=== PATIENT | female | born 1940 | race Caucasian/White ===

== ENCOUNTER → 2018-06-11 | Outpatient (CLI) | payer OTHER ==
[~2018-06-11] VITALS: Ht 149.9 cm; Wt 45.5 kg
[~2018-06-11] MED LIST: B12INJ PO; CRESTOR20 MG PO; CYMBALTA30 MG PO; LISINOPRIL10 MG PO; MULTIVITAMINS1 EAC7 PO; NEURONTIN600 MG PO; WELLBUTRIN SR150 MG PO; ZANTAC 150MG T150 MG PO
--- NOTE | ~2018-06-11 | HPC ---
[address] [address] PAIN MANAGEMENT CONSULTATION Name: QUINTONLYNETTE E Room #: REG [facility] [id number] Admission: 06/11/18 Attend Phys: Yunior Quinteros DO Discharge: Date of : 42 Report #: [id number] THIS REPORT FOR: //name// CC: Dominguez Thrasher MD DATE OF SERVICE: 06/11/2018 CHIEF COMPLAINT: Low back pain, bilateral lower extremity pain with paresthesias, right greater than left. HISTORY OF PRESENT ILLNESS: As you know, the patient is a 77-year-old female with a longstanding history of low back pain and lower extremity pain with paresthesias. The patient, as you are aware, has significant thoracolumbar scoliotic curvature with dextroscoliosis rotation. She sought evaluation with Neurosurgery as she was not noticing improvement in symptoms with traditional epidural injections and treatment options from another pain clinic. Apparently, she went to an initial neurosurgeon who advised her no surgical options. She sought second opinion through Dr. Felix Thrasher's office who indicated no traditional surgical options were recommended, but consideration of a spinal cord stimulator might be beneficial. The patient was then subsequently referred to our clinic to discuss the possibility of undergoing a spinal cord stimulator trial implantation. She has been referred to our service to discuss this option. The patient indicates today pain is continuous, describes the pain as cramping, pulling, sharp, stabbing when describing pain. She places current pain score 9/10, daily average at 10/10, worst pain has been as 10/10. The patient states that sitting, standing, walking, moving, doing any activity tends to exacerbate symptoms, lying down is the only thing that improves her symptoms. She has been referred to our clinic to discuss the possibility of spinal cord stimulator trial implantation. She does come today with x-ray imaging, which shows severe S-shaped scoliotic curvature at the exact point where the spinal cord stimulator leads would have to be placed, which is at the T9-T10 level. She has been provided further imaging to be commented further. She has been referred to our clinic to discuss options for treatment. ALLERGIES: DARVON, KEFLEX, BACTRIM, SULFA. CURRENT MEDICATIONS: Cymbalta 60 mg once a day, ranitidine 150 mg twice a day, Wellbutrin 150 mg once a day, vitamin B12 100 mcg per day, Crestor 20 mg per day, gabapentin 600 mg 3 times a day, lisinopril 10 mg per day, multivitamin 1 tab per day, Colace 100 mg per day. PAST MEDICAL HISTORY: [address] [address] PAIN MANAGEMENT CONSULTATION Name: LYNETTE ALCANTARA Room #: REG CLMagen San#: [id number] Admission: 06/11/18 Attend Phys: Yunior Quinteros DO Discharge: Date of : 42 Report #: [id number] 1. Osteoarthritis. 2. Anemia. 3. Hyperlipidemia. 4. Hypertension. 5. History of heart murmur. 6. Varicose veins. 7. Severe kyphoscoliosis. 8. Interstitial cystitis. 9. Actinic keratosis. 10. Diverticular disease. 11. Chronic kidney disease stage 3. 12. Anxiety and depression. PAST SURGICAL HISTORY: Cryotherapy, EGD, orthopedic hand surgery, colonoscopies, appendectomy. SOCIAL HISTORY: The patient denies tobacco, alcohol, IV or illicit drug use. She is retired, retired years ago. She is not receiving workmen's compensation or is she trying to obtain disability benefits. She is not in litigation in regards to her pain. She is accompanied by her who is present in room today. REVIEW OF SYSTEMS: Positive for wearing corrective eyewear, depression, anxiety, chronic kidney disease, diverticular disease, chronic bladder issues, kyphoscoliosis with chronic pain, hyperlipidemia, hypertension, osteoarthritis of major weightbearing joints. All other review of systems is negative per 12-point review of systems other than those listed in history of present illness. Pain impact score 60/70. Near complete interference of daily activities secondary to pain. IMAGING: MRI lumbar spine obtained 05/21/2018 shows severe lumbar levoscoliosis with rotatory component and multilevel abnormal lateral subluxation specifically of L3 relative to L4, multilevel variable degenerative disk disease, lateral recess stenosis noted at the L4-L5 level on the left. Severe narrowing of the right L3-L4, neural foramen poorly distinguished due to abnormal left lateral subluxation. MRI of thoracic spine shows severe thoracic dextroscoliosis at the T9-T10 level. PQRS: The patient has known osteoarthritis of the thoracic and lumbar area as well as cervical area. She has arthritic changes within the hands, bilateral hips and knees. She does not carry the diagnosis of rheumatoid arthritis. She is placing pain intensity today 9/10. She is a fall risk, but has not had a fall in the last 3 months. She is not on blood thinners, but she is treated for [facility] [address] [place] [address] PAIN MANAGEMENT CONSULTATION Name: LYNETTE ALCANTARA Room #: REG [facility]#: [id number] Admission: 06/11/18 Attend Phys: Yunior Quinteros DO Discharge: Date of : 42 Report #: [id number] hypertension. She is not on opioid medications. She is a low risk for opioid abuse. Functional pain impact 60/70, near complete interference of daily activity. PHYSICAL EXAMINATION: VITAL SIGNS: Blood pressure 120/44, pulse 77, respiratory rate 14 and unlabored. The patient is 100% on room air. Height 4 feet 11 inches tall, weight 100 pounds, BMI calculated 20.3. GENERAL: Well-developed, well-nourished, well-hydrated severely kyphotic and scoliotic 77-year-old female, appearing stated age. She is in no acute distress, awake, alert and oriented x 3. Pain is rated at 9/10. HEENT: Normocephalic, atraumatic. Pupils equal, round, reactive to light. Extraocular muscles are intact. Sclerae nonicteric without injection. NEUROLOGIC: Cranial nerves 2 through 12 grossly intact. Speech is fluent. The patient deemed a fair historian. LUNGS: Clear, no wheeze, rhonchi or rales. CARDIOVASCULAR: Regular. No appreciable gallop or rub. ABDOMEN: Soft, nontender, nondistended, normoactive bowel sounds. EXTREMITIES: Show no clubbing, no cyanosis, no edema. MUSCULOSKELETAL: Lower extremity strength is symmetrical 5/5. Only noted weakness is with hip flexion on the right, which appears to be mildly reduced secondary to pain. Deep tendon reflexes 2+/4 at patella and Achilles. Ankle clonus is negative. Babinski is negative. Seated straight leg raising is negative. Supine straight leg raising is equivocal. Significant curvature of the thoracolumbar area noted in gross examination. Palpatory tenderness throughout the paraspinal musculature of lower lumbar spine, no spinous process tenderness. Gait is antalgic. Stance is mildly forward flexed, those scoliosis and kyphosis changes are noted. ASSESSMENT: 1. Chronic low back pain. 2. Idiopathic scoliosis. 3. Idiopathic kyphosis. 4. Chronic intractable pain. PLAN: 1. The patient has been referred to our service by her neurosurgeon to discuss the possibility of having a spinal cord stimulator trial implantation. The patient's symptoms appear to be radicular in origin and given the findings on recent imaging, I believe this is due to the neural foraminal stenosis noted in conjunction with the scoliotic curvatures both in the lumbar and contributed to by the thoracic area. The patient and I discussed at length the spinal cord stimulator option for treatment. I do feel she might be a candidate for this, but I have advised the patient given her significant scoliotic curvature and the fact that it is at the T9-T10 level where the leads have to be placed there is a strong potential that trial may not be possible given the significant rotational [address] [address] PAIN MANAGEMENT CONSULTATION Name: LYNETTE ALCANTARA Room #: REG [facility]#: [id number] Admission: 06/11/18 Attend Phys: Yunior Quinteros DO Discharge: Date of : 42 Report #: [id number] component at this level as well. The cord is quite torturous in the area and the dorsal columns do not align in typical fashion. There is also a high possibility that given this curvature that the leads may displace over time as I do not feel this curvature is significantly stable. There has been increasing curvature per the patient's report. This places the patient at a higher risk of early failure of the device once it is implanted. Certainly, we could look forward to moving forward with a temporary implant, but I would caution the patient that a possibility of long-term benefit from this device would not be guaranteed. The excessive curvature of the patient has at the T9-T10 level may also make it extremely difficult for the leads to be advanced in a percutaneous fashion. We will be sending the patient for further evaluation from a psychiatric standpoint for the spinal cord stimulator device, though I have advised the patient to contact her neurosurgeon before moving forward as the concerns that we have in regards to her anatomical situation and our concerns of the potential increasing curvature that may lead to failure of the device needs to be discussed before she moves forward. I do feel the spinal cord stimulator will provide some benefit, though I am not confident that she will gain long-term efficacy with this device given the changes that she has in the thoracic and lumbar area at this visit. She will discuss this further with her neurosurgeon. 2. The patient will be sent for psychiatric evaluation. I have given the patient multiple names of physicians in the area that do the psychiatric evaluation for spinal cord stimulator trials. Once the patient has completed this trial, we will review these reports. If she appears to be an appropriate candidate from a psychiatric standpoint, we would continue the process of approvals. The patient will make an appointment with his psychiatrist as quickly as possible so that this evaluation can be completed. 3. The patient will contact Neurosurgery in regards to the spinal cord stimulator and our concerns were voiced today. Certainly, giving this a trial would make sense in the patient's case as I do not feel that she is a candidate for traditional surgery. I have indicated to the patient as discussed above our concerns about her scoliotic curvature and the potential of long-term benefit with the device. The patient will need to discuss this further with the referring physician as they will be implanting the permanent device if successful in trial form. 4. We wish to thank Dr. Thrasher for the opportunity to see this patient in consultation. We will keep you apprised of her response to treatment and whether she wishes to move forward with the trial implantation of the spinal cord stimulator and its efficacy. Again, we wish to thank you for the opportunity to see the patient in consultation. <ELECTRONICALLY SIGNED> By: Yunior Quinteros DO 06/17/18 1301 [id number] [id number] Yunior Quinteros DO /nt
[2018-06-11 11:00] VITALS: BP 120/44
== END ==
LOC: PAIN 09:27
DX: M41.86 Other forms of scoliosis, lumbar region (principal); G89.4 Chronic pain syndrome; M54.5 Low back pain; I12.9 Hypertensive chronic kidney disease with stage 1 through stage 4 chronic kidney disease, or unspecified chronic kidney disease; N18.3 Chronic kidney disease, stage 3 (moderate); M19.90 Unspecified osteoarthritis, unspecified site; E78.5 Hyperlipidemia, unspecified; Z79.899 Other long term (current) drug therapy

== ENCOUNTER → 2018-07-16 | Outpatient (CLI) | payer OTHER ==
[~2018-07-16] VITALS: Ht 149.9 cm; Wt 46.7 kg
--- NOTE | ~2018-07-16 | P ---
[facility] [place] [address] PROCEDURE REPORT Name: LYNETTE ALCANTARA [id number] Admission: 07/16/18 Attend Phys: Yunior Quinteros DO Discharge: Date of : 42 Report #: [id number] THIS REPORT FOR: //name// CC: Dominguez Thrasher MD DATE OF SERVICE: 07/16/2018 PROCEDURE: Two-lead spinal cord stimulator trial implantation. DESCRIPTION OF PROCEDURE: After obtaining written consent, a 22-gauge IV Hep-Lock was placed in the patient's right upper extremity The patient was given IV prophylactic antibiotic infused 30 minutes prior to the procedure. The patient was taken to the fluoroscopy suite, placed in a prone position with 2 pillows under the abdomen to decrease lumbar lordosis. Cardiopulmonary monitoring was established and the patient's vital signs were monitored throughout the procedure. The patient's thoracolumbar area was then prepped and draped in aseptic fashion. AP fluoroscopic imaging was obtained to identify and jerardo the midline position of the T10 through L2 spinous processes. Skin was anesthetized with 1% lidocaine utilizing 10 mL total. This was done prior to the introduction of the two 14-gauge 4-1/2-inch Tuohy needles. Skin entry site was approximately at the level of the L1 vertebral body. Needle was advanced using a paramedian approach to the midline at approximately 45-degree angle. Loss of resistance to air was utilized to verify placement within the epidural space. The epidural space was entered at the T12-L1 interspace. Lateral fluoroscopic imaging was obtained to confirm the position of the tip of the Tuohy needle within the epidural space. Aspiration was noted to be negative for heme or cerebrospinal fluid. The patient did not complain of pain or paresthesias during needle placement. The spinal cord stimulating lead was then advanced through the Tuohy needle under direct visualization, slightly to the left of midline. The tip of the stimulating lead was then aligned with the inferior endplate of T8. At this point, temporary extension was connected to the end of the spinal cord stimulating lead. Stimulator testing was performed with the assistance of the [employer] device authorization representative. The patient reported good capture of pain over her typical pain area within acceptable voltage. The final position of the zero electrode was noted to be unmoved from its previous position. A second lead was placed following similar technique with placement of the lead just to the right of the initial lead located within midline. The stylets were then removed from each of the leads followed by the Tuohy needle. We checked the position of both leads prior to removing the stylets and prior to removing the Tuohy needles. This imaging was done both in AP and lateral positioning to confirm the leads did not displace. After verification of the positions, the stimulating leads were then anchored to the patient's back with benzoin, Steri-Strips and OpSite [address] [address] PROCEDURE REPORT Name: LYNETTE ALCANTARA Room #: REG [facility]#: [id number] Admission: 07/16/18 Attend Phys: Yunior Quinteros DO Discharge: Date of : 42 Report #: [id number] bandaging. Over a 35-minute timeframe was spent programming the spinal cord stimulator to obtain optimal capture of the pain's distribution in an acceptable voltage. The [facility] device authorization representative as well as myself advised the patient to keep the stimulator during the trial from getting wet. We exchanged information in regards to the on-call pain physician as well as the [employer] device authorization representative. She will contact if she has difficulty with the device itself. She was advised if she notes any concern of infection, whether this be fever, chills, night sweats, excessive drainage at the site, increasing neck pain, back pain, any type of weakness, she is to contact the on-call pain physician. If concerns of capture of the patient's typical pain, she is to contact the [employer] device authorization representative. The patient tolerated procedure well, carefully escorted to recovery room. Once meeting our discharge criteria, the patient was discharged home. <ELECTRONICALLY SIGNED> By: Yunior Quinteros DO 07/18/18 0753 1220 [id number] Yunior Quinteros DO /nt
--- NOTE | ~2018-07-16 | HPC ---
[facility] [place] [address] PAIN MANAGEMENT CONSULTATION Name: QUINTONLYNETTE E [facility] #[facility] [id number] Admission: 07/16/18 Attend Phys: Yunior Quinteros DO Discharge: Date of : 42 Report #: [id number] THIS REPORT FOR: //name// CC: Dominguez Thrasher MD DATE OF SERVICE: 07/16/2018 CHIEF COMPLAINT: Low back pain; bilateral lower extremity pain, right greater than left. HISTORY OF PRESENT ILLNESS: As you know, the patient is a 77-year-old female with longstanding history of low back pain, lower extremity pain with paresthesias. The patient sought evaluation through Neurosurgery with Dr. Felix Thrasher for surgical options. The patient was referred to our clinic to trial a spinal cord stimulator in hopes of improving overall pain. The patient has completed all psychiatric evaluations and prerequisites to undergo the procedure and returns today to undergo implantation of a temporary spinal cord stimulator in hopes of improving low back pain, bilateral lower extremity pain. The patient indicates pain at level of 9/10 today. States her pain is cramping, pulling, sharp and stabbing in sensation; exacerbated with standing, walking, sitting, movement, bending; improves with medications, heat and cold compresses. She returns today to undergo spinal cord stimulator trial implantation in hopes of improving lumbar radicular symptoms. ALLERGIES: DARVON, KEFLEX, BACTRIM, SULFA. CURRENT MEDICATIONS: Cymbalta, ranitidine, Wellbutrin, vitamin B12, Crestor, gabapentin, lisinopril, multivitamin, Colace. SOCIAL HISTORY: The patient denies tobacco, alcohol, IV or illicit drug use. She is retired, retired years ago. She is accompanied by her who is present in room today. IMAGING: No new imaging available. PQRS: The patient has osteoarthritis of the thoracolumbar spine as well as cervical spine. She has arthritic changes of the hands, bilateral hips and knees. She does not have the diagnosis of rheumatoid arthritis. She is placing pain intensity today 10. She is a fall risk, but has not had a fall in last 3 months. She is not on blood thinners. She is treated for hypertension. She is not on any opioid medications. She is at low risk for opioid abuse. Pain impact score 60/70, severe, near complete interference of daily activities secondary to pain. [address] [address] PAIN MANAGEMENT CONSULTATION Name: LYNETTE ALCANTARA Room #: REG CLI [place]#: [id number] Admission: 07/16/18 Attend Phys: Yunior Quinteros DO Discharge: Date of : 42 Report #: [id number] PHYSICAL EXAMINATION: VITAL SIGNS: Blood pressure 133/50, pulse is 76, respiratory rate 16 and unlabored. The patient is 100% on room air. Height 4 feet 11 inches tall, weight 103 pounds, BMI calculated 20.8. GENERAL: Well-developed, well-nourished, well-hydrated, severely kyphotic and scoliotic 77-year-old female, appearing stated age, placing current pain score at 9/10. HEENT: Normocephalic, atraumatic. Pupils equal, round, reactive to light. Speech is fluent. The patient deemed a good historian. EXTREMITIES: Show no clubbing, no cyanosis, no edema. MUSCULOSKELETAL: Lower extremity strength is 5/5, weakness in the hip flexors on the right when compared to left. Deep tendon reflexes 2+/4 patella and Achilles. Ankle clonus negative. Babinski is negative. Seated straight leg raising negative. Supine straight leg raising equivocal. ASSESSMENT: 1. Chronic low back pain. 2. Chronic lumbar radiculopathy. 3. Idiopathic scoliosis. 4. Idiopathic kyphosis. 5. Chronic intractable pain. PLAN: 1. The patient returns today having completed all prerequisites to undergo spinal cord stimulator trial implantation. The patient and I spent time today reviewing the risks and the benefits of this proposed treatment option. We discussed the risks as including, but are not necessarily limited to bleeding, bruising, infection, worsening pain, no relief of pain, also risk of temporary or permanent muscle weakness, temporary or permanent nerve damage, possible paralysis and . The patient states she understood and wished to proceed. 2. No medication changes made at today's visit. The patient will continue current medical therapy as previously prescribed. 3. We will see the patient back in followup visit next week for explantation of the spinal cord stimulator. The patient was advised during the trial if she notes any fever, chills, night sweats, changes in back pain, increasing neck pain, any type of weakness, excessive drainage at the site of the injections, she is to contact the on-call pain physician. If she is having concern of pain in her normal distribution, she is to contact the [employer] device benefits representative for adjustment of the device. We will see her back in followup visit in 1 week for explantation of spinal cord stimulator. <ELECTRONICALLY SIGNED> By: Yunior Quinteros DO 07/18/18 0753 1220 32 Yunior Quinteros, DO /nt
[2018-07-16 07:12] VITALS: BP 133/50
== END | disposition home or self-care (01) ==
LOC: PAIN 06:40
DX: M47.25 Other spondylosis with radiculopathy, thoracolumbar region (principal); M47.22 Other spondylosis with radiculopathy, cervical region; M41.20 Other idiopathic scoliosis, site unspecified; G89.29 Other chronic pain; I10 Essential (primary) hypertension; Z88.8 Allergy status to other drugs, medicaments and biological substances; Z88.2 Allergy status to sulfonamides; Z79.899 Other long term (current) drug therapy

== ENCOUNTER → 2018-07-23 | Outpatient (CLI) | payer OTHER ==
[~2018-07-23] VITALS: Ht 149.9 cm; Wt 46.5 kg
[~2018-07-23] MED LIST changes: +BUTRANS1 EAC1 TRANSDERM
--- NOTE | ~2018-07-23 | HPC ---
[facility] [place] [address] PAIN MANAGEMENT CONSULTATION Name: LYNETTE ALCANTARA [facility] [id number] Admission: 07/23/18 Attend Phys: Yunior Quinteros DO Discharge: Date of : 42 Report #: [id number] THIS REPORT FOR: //name// CC: Dominguez Quinteros DATE OF SERVICE: 07/23/2018 CHIEF COMPLAINT: Low back pain and bilateral lower extremity pain, right greater than left. HISTORY OF PRESENT ILLNESS: As you know, the patient is a 77-year-old female with long-standing history of low back pain and lower extremity pain with paresthesias. The patient sought evaluation with Neurosurgery, Dr. Felix Thrasher, for surgical options. The patient was referred to our clinic to trial a spinal cord stimulator. She returns today in followup visit, having completed her spinal cord stimulator trial. Unfortunately, the trial did not provide greater than 50% improvement in overall pain. She returns today with pain level of 3/10. She states pain is cramping, pulling, sharp, stabbing, exacerbated with sitting, standing, walking, movement, bending and improves with medications, heat, cold compresses and lying down. The patient did not report good efficacy with the spinal cord stimulator trial. She returns to discuss options. ALLERGIES: DARVON, KEFLEX, BACTRIM AND SULFA. CURRENT MEDICATIONS: Cymbalta, ranitidine, Wellbutrin, vitamin B12, Crestor, gabapentin, lisinopril, multivitamin and Colace. SOCIAL HISTORY: The patient denies tobacco, alcohol, IV or illicit drug use. She is retired, retired years ago; accompanied by her , present in room today. IMAGING: No new imaging available. 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 She has arthritic changes of the hands, bilateral hips and knees. She does not have a diagnosis of osteoarthritis. She is placing current pain score around 3/10. She is a fall risk, but has not had a fall in last 3 months. She is not on blood thinner. She is treated for hypertension. She is not on any current opioid medications. She is low risk for opioid abuse. Pain impact score remains at 60/70, near complete interference with daily activities secondary to pain. PHYSICAL EXAMINATION: VITAL SIGNS: Blood pressure 137/51, pulse 76 and respiratory rate 16 and [facility] [address] [place] [address] PAIN MANAGEMENT CONSULTATION Name: LYNETTE ALCANTARA Room #: REG CLI [facility].#: [id number] Admission: 07/23/18 Attend Phys: Yunior Quinteros DO Discharge: Date of : 42 Report #: [id number] unlabored. The patient is 100% on room air. Height is 4 feet 11 inches tall, weight 102.6 pounds and BMI calculated at 20.7. GENERAL: Well-developed, well-nourished, well-hydrated severely scoliotic and kyphotic 77-year-old female, appearing her stated age. She is placing the pain score today at 3/10. HEENT: Normocephalic, atraumatic. Pupils equal, round and reactive to light. EXTREMITIES: Show no clubbing, no cyanosis, no edema. MUSCULOSKELETAL: Lower extremity strength is 5/5. Muscle bulk and tone are symmetrical, though she does have some weakness with hip flexors on the right, when compared to the left. Deep tendon reflexes 2+/4 patella and Achilles. Ankle clonus negative. Babinski is negative. Seated straight leg raising negative. Supine straight leg raising equivocal. ASSESSMENT: 1. Chronic low back pain. 2. Lumbar radiculopathy. 3. Idiopathic scoliosis. 4. Idiopathic kyphosis. 5. Opioid intolerance. 6. Chronic intractable pain. PLAN: 1. The patient returns today in followup visit indicating no significant efficacy with the spinal cord stimulator trial. Unfortunately, this did not provide the patient with any benefit significant enough that she should move forward with the device. We have advised the patient of such today. We discussed with the patient that options are fairly limited for treatment at this point. We discussed the following potential treatment options with the patient today: We discussed physical therapy, stretching exercise and core strengthening as a way to try to improve pain and continue normal function. We discussed medication management as an option for treatment and ultimately surgical options, though Neurosurgery is resistant to discuss extensive surgeries that would be necessary to try to correct the severe rotoscoliosis and kyphosis noted in this patient's imagings. After a discussion of the remaining treatment options, the patient chose to move forward with medication management. 2. The patient voices issues with multiple opioids. She was trialed on tramadol, which cause confusion, disorientation and had to be discontinued immediately due to concerns of fall risk. She was trialled on hydrocodone, oxycodone and morphine, all of which caused severe constipation effects and respiratory issues. This leaves us with very few alternative treatment options. We discussed that the options that exist from an opioid standpoint are quite limited with the side effects she has already had with other medications. We discussed the possibility of utilizing buprenorphine, which is a partial agonist [address] [address] PAIN MANAGEMENT CONSULTATION Name: LYNETTE ALCANTARA Room #: REG CLI Mena#: [id number] Admission: 07/23/18 Attend Phys: Yunior Quinteros DO Discharge: Date of : 42 Report #: [id number] with the mu receptor, causing less GI issues or no respiratory issues, but providing analgesic benefit. We also discussed possibility of utilizing Nucynta as a treatment option. After reviewing the risks and benefits of those two medications, the patient requested possibly utilizing buprenorphine. 3. The patient was provided a Butrans patch 5 mcg patch 1 patch every week. This will provide the patient with buprenorphine benefit, reduce the potential GI issues by avoiding the alimentary canal. This will allow for 24-hour day coverage of pain, which is what the patient experiences daily and gives the patient's baseline level of medication with lower side effect profile. I did advise the patient that this medication could be difficult to obtain given its issues with coverage from third alliance party payer perspective, though, in this patient's case, I feel it is appropriate and necessary as I do not feel the patient is going to be able to find other options for treatment given the severity of her clinical findings. 4. We will see the patient back in followup visit in 1 month. At that time, we will discuss the efficacy of the Butrans patch to determine if we need to adjust the medication to address any residual pain. 5. We have advised the patient to return to see the referring physician, Dr. Felix Thrasher, for options from a surgical standpoint. As indicated above, there are limited opportunities to treatment in this patient's case and she may need to look towards more aggressive surgical options if she wishes to alleviate symptoms. We will see her back in 1 month after she has had a discussion with Neurosurgery. <ELECTRONICALLY SIGNED> By: Yunior Quinteros DO 07/29/18 [id number] Yunior Quinteros DO /nt
[2018-07-23 10:02] VITALS: BP 137/51
== END ==
LOC: PAIN 07-22 10:40
DX: M54.16 Radiculopathy, lumbar region (principal); G89.4 Chronic pain syndrome; F11.23 Opioid dependence with withdrawal; M41.26 Other idiopathic scoliosis, lumbar region

== ENCOUNTER → 2018-08-05 | Outpatient (CLI) | payer OTHER ==
[~2018-08-05] VITALS: Ht 149.9 cm; Wt 46.7 kg
[~2018-08-05] MED LIST changes: +VITAMIN D1000 UNI1 PO
--- NOTE | ~2018-08-05 | HPC ---
[address] [address] PAIN MANAGEMENT CONSULTATION Name: LYNETTE ALCANTARA Room #: REG CL Mena#: [id number] Admission: 08/05/18 Attend Phys: Yunior Quinteros DO Discharge: Date of : 42 Report #: [id number] THIS REPORT FOR: //name// CC: Dominguez [facility] DATE OF SERVICE: 08/05/2018 CHIEF COMPLAINT: Back pain, bilateral lower extremity pain, right greater than left. HISTORY OF PRESENT ILLNESS: As you know, the patient is a 77-year-old severely scoliotic and kyphotic female who has a longstanding history of low back pain, lower extremity pain with paresthesias, right greater than left. She was originally referred to our clinic to trial a spinal cord stimulator. Unfortunately, this provided no improvement in symptoms. She has severe scoliosis and [id number] kyphosis complaining to cause her ongoing pain issues. She returns today in followup visit after being initiated on Butrans patch in hopes of improving pain for baseline pain control. Unfortunately, the patient could not tolerate this medication as well. She has essentially failed oral medication management. She has failed a spinal cord stimulator therapy. We discussed the possibility of having the patient undergo an epidural injection under fluoroscopic guidance as she has received improvement in the past, though I have advised the patient that this would not be a longstanding treatment as her symptoms are more mechanical than strictly neuropathic. She returns requesting this lumbar epidural injection having failed medication changes. ALLERGIES: DARVON, KEFLEX, BACTRIM, SULFA. CURRENT MEDICATIONS: Cymbalta, ranitidine, Wellbutrin, vitamin B12, Crestor, gabapentin, lisinopril, multivitamin, Colace. SOCIAL HISTORY: The patient denies tobacco, alcohol, IV or illicit drug use. She is retired, retired years ago, accompanied by her present in room today. IMAGING: No new imaging available. PQRS: The patient has a thoracolumbar osteoarthritis, cervical arthritis. She has arthritic changes of her hand, bilateral hips and knees. She does not have a diagnosis of rheumatoid arthritis. She is placing pain today at around 9/10. She is not a fall risk, has not fallen in the last 3 months. She is not on blood thinners. She is not treated for hypertension. She is not on any chronic opioids. She is at low risk for opioid addiction. She is placing pain impact at 60/70, near complete interference of daily activities secondary to pain. [address] [address] PAIN MANAGEMENT CONSULTATION Name: LYNETTE ALCANTARA [facility] [id number] Admission: 08/05/18 Attend Phys: Yunior Quinteros DO Discharge: Date of : 42 Report #: [id number] PHYSICAL EXAMINATION: VITAL SIGNS: Blood pressure 117/51, pulse 75, respiratory rate 14 and unlabored. The patient is 100% on room air. Height 4 feet 11 inches tall, weight 103 pounds, BMI calculated 20.8. GENERAL: Well-developed, well-nourished, well-hydrated, scoliotic and kyphotic 77-year-old female, appears her stated age. She is in no acute distress, awake, alert and oriented x 3. Pain is rated at 9/10. HEENT: Normocephalic, atraumatic. Pupils equal, round, reactive to light. EXTREMITIES: Show no clubbing, no cyanosis, no edema. MUSCULOSKELETAL: The patient has noted a 5/5 lower extremity strength. Muscle bulk and tone are symmetrical, though there is some weakness in the hip flexors on the right when compared to left. Deep tendon reflexes are symmetrical. Ankle clonus negative. Babinski is negative. Seated straight leg raising negative. Supine straight leg raising is equivocal. She has a significant scoliotic and moderate kyphotic curvature noted of the thoracolumbar area. ASSESSMENT: 1. Chronic low back pain. 2. Chronic lumbar radiculopathy. 3. Idiopathic scoliosis. 4. Idiopathic kyphosis. 5. Opioid intolerance. 6. Chronic intractable pain. PLAN: 1. The patient returns today in followup visit indicating she was unable to tolerate the Butrans patch. This is unfortunate as it has the lowest potential of side effects from a gastrointestinal standpoint as well as from respiratory standpoint. She states she was nauseated and felt like vomiting throughout the entire first dosing of patches. She returns to discuss other options for treatment. We discussed the following with the patient today, though we have a severely limited treatment options given her extends of thoracolumbar scoliosis and subsequent sequelae. We discussed physical therapy, stretching exercises as a treatment option that in conjunction with myofascial release and acupuncture therapy could be quite beneficial. We discussed medication management changes, though she has failed most current opioid formulations. She apparently had had hydrocodone in the past, and this caused some nausea and dysphoric effects. She has had oxycodone again which cause nausea and dysphoric effects. Morphine she is refusing to trial. We tried her on a Butrans, but this caused nausea and dysphoric effects. I believe we have a fairly severely limited capabilities of treating her symptoms with these medications. We also discussed possibility of undergoing epidural injection as she has seen improvement in the past, though I have advised the patient this will not provide prolonged benefit. We also discussed [facility] [address] [place] [address] PAIN MANAGEMENT CONSULTATION Name: QUINTONLYNETTE Zoya Room #: REG THEA San#: [id number] Admission: 08/05/18 Attend Phys: Yunior Quinteros DO Discharge: Date of : 42 Report #: [id number] ultimately surgical options, which if the patient wishes to correct any of the issues that she currently has will be necessary. After discussing risks and benefits of all proposed treatment options, the patient chose to begin with an epidural injection. The patient was advised risks and benefits of a lumbar epidural injection. These risks include but are not necessarily limited to bleeding, bruising, infection, worsening pain, no relief of pain, also risk of temporary or permanent muscle weakness, temporary or permanent nerve damage, possible paralysis and . The patient states understood and wished to proceed. 2. No medication changes made at today's visit. We have advised the patient discontinue use of Butrans. She can destroy the Butrans patches as indicated on the design tech label or she can return those to her local pharmacy for destruction. 3. We will see the patient back in followup visit on an as needed basis. We have recommended that she return to see her neurosurgeon who referred the patient to our clinic, Dr. Felix Thrasher, for surgical options PROCEDURE NOTE DESCRIPTION OF PROCEDURE: Lumbar epidural steroid injection under fluoroscopic guidance. After obtaining written consent, the patient was taken back to fluoroscopy suite, placed in prone position with pillow under abdomen to decrease lumbar lordosis. Skin overlying lumbosacral area then prepped and draped in aseptic fashion. Lumbar intervertebral spaces were identified by AP fluoroscopy. Skin and subcutaneous tissue overlying target site of injection and anesthetized with 3 mL of 1% lidocaine. A 20-gauge 3-1/2 inch Tuohy needle advanced under fluoroscopic guidance towards the epidural space using a paramedian approach. Epidural space identified using loss of resistance to air technique. After negative aspiration for heme or cerebrospinal fluid, 1 mL of Omnipaque was injected. A lumbar epidurogram was confirmed using both AP and lateral fluoroscopy. After negative aspiration for heme or cerebrospinal fluid, 5 mL of a solution containing 2 mL 40 mg per mL, 80 mg total triamcinolone, 3 mL lidocaine 1% injected slowly. Needle retracted detention, flushed with 1 mL of 1% lidocaine and removed. Sterile bandage placed over injection site. No new motor deficits present in the lower extremity following the procedure. The patient tolerated procedure well, [place] [address] PAIN MANAGEMENT CONSULTATION Name: LYNETTE ALCANTARA Room #: REG CLI [facility].#: [id number] Admission: 08/05/18 Attend Phys: Yunior Quinteros DO Discharge: Date of : 42 Report #: [id number] stable condition. No apparent complication. After meeting discharge criteria, the patient discharged home. <ELECTRONICALLY SIGNED> By: Yunior Quinteros DO 08/12/18 1109 [id number] [id number] Yunior Quinteros DO /yang
[2018-08-05 09:38] VITALS: BP 117/51
== END | disposition home or self-care (01) ==
LOC: PAIN 08:40
DX: M54.16 Radiculopathy, lumbar region (principal); G89.29 Other chronic pain; M41.86 Other forms of scoliosis, lumbar region; M19.90 Unspecified osteoarthritis, unspecified site; Z88.5 Allergy status to narcotic agent; Z88.2 Allergy status to sulfonamides; Z88.8 Allergy status to other drugs, medicaments and biological substances; Z79.899 Other long term (current) drug therapy; Z98.890 Other specified postprocedural states

== ENCOUNTER → 2018-08-20 | Outpatient (CLI) | payer OTHER ==
[~2018-08-20] VITALS: Ht 149.9 cm; Wt 45.0 kg
--- NOTE | ~2018-08-20 | HPC ---
[facility] [place] [address] PAIN MANAGEMENT CONSULTATION Name: LYNETTE ALCANTARA Room #: REG CL [facility].#: [id number] Admission: 08/20/18 Attend Phys: Yunior Quinteros DO Discharge: Date of : 42 Report #: [id number] THIS REPORT FOR: //name// CC: Dominguez Thrasher M.D. DATE OF SERVICE: 08/20/2018 CHIEF COMPLAINT: Back pain, bilateral lower extremity pain, right greater than left. HISTORY OF PRESENT ILLNESS: As you know, the patient is a 77-year-old severely scoliotic and kyphotic female with longstanding history of low back pain, bilateral lower extremity pain and paresthesias, right greater than left. She was originally referred to our clinic to trial a spinal cord stimulator. Unfortunately, this provided no improvement in symptoms. She suffers from severe scoliosis, xycm-gg-xddlohsb kyphosis, which causes low back issues and mid back issues as well as bilateral lower extremity pain with paresthesias. She underwent an epidural injection at our last visit for which she reports improvement of about 100%, lasting for 2 weeks. Unfortunately, her symptoms have progressively returned. She is now placing pain score at 6/10. States the pain is cramping, pulling, sharp and stabbing in sensation, exacerbated with standing and walking; improves with heat compresses, lying down and transiently with epidural injections. She returns today to discuss treatment options for ongoing pain issues. ALLERGIES: DARVON, KEFLEX, BACTRIM, SULFA. CURRENT MEDICATIONS: Cymbalta, ranitidine, Wellbutrin, vitamin B12, Crestor, gabapentin, lisinopril, multivitamin, Colace. SOCIAL HISTORY: The patient denies tobacco, alcohol, IV or illicit drug use. She is retired, retired years ago. She is accompanied by her who is present in room today. IMAGING: No new imaging available. PQRS: The patient has thoracolumbar osteoarthritis; cervical arthritis; arthritic hands, bilateral hips and knees. No diagnosis of rheumatoid arthritis. She is placing pain today at 6/10. She is not a fall risk, has not had a fall in the last 3 months. She is not on blood thinners. She is not treated for hypertension. She is not on chronic opioids. She is a low risk for opioid addiction. Her pain impact tool is 60/70 indicating severe near complete interference of daily activities secondary to pain. [address] [address] PAIN MANAGEMENT CONSULTATION Name: LYNETTE ALCANTARA Room #: REG CLI Mena#: [id number] Admission: 08/20/18 Attend Phys: Yunior Quinteros DO Discharge: Date of : 42 Report #: [id number] PHYSICAL EXAMINATION: VITAL SIGNS: Blood pressure 116/54, pulse 78, respiratory rate 14 and unlabored. The patient is 100% on room air. Height 4 feet 11 inches tall, weight 99.2 pounds, BMI calculated at 20. GENERAL: Well-developed, well-nourished, well-hydrated severely scoliotic and kyphotic 77-year-old female appearing her stated age. She is placing current pain score approximately at 6/10. HEENT: Normocephalic, atraumatic. Pupils equal, round, reactive to light. EXTREMITIES: Show no clubbing, no cyanosis, no edema. MUSCULOSKELETAL: Lower extremity strength is symmetrical 5/5. Muscle bulk and tone are symmetrical with only weakness of the hip flexors on the right when compared to left. Deep tendon reflexes are symmetrical. Ankle clonus negative. Babinski is negative. Seated straight leg raising negative. Supine straight leg raising is equivocal significant scoliotic and moderate kyphotic curvature of the thoracolumbar area. ASSESSMENT: 1. Chronic low back pain. 2. Lumbar radiculopathy. 3. Idiopathic scoliosis. 4. Idiopathic kyphosis. 5. Opioid intolerance. 6. Chronic intractable pain. PLAN: 1. The patient has returned today in followup visit where we have discussed the efficacy of the epidural injection. She reports improvement of 100%, lasting for 2 weeks. Unfortunately, she has had a slow and progressive return of symptoms though she indicates the 6/10 pain is much improved pain level than our previous evaluation. She wishes to remain utilizing the epidural injections on an as needed basis. She understands that she will experience discomfort due to her significant scoliosis and kyphosis that may be present with or without the assistance of medications. She does indicate her radicular symptoms have improved, about remaining at 60% improvement at this time. She will utilize the epidural injections on an as needed basis. 2. The patient has been trialed on medication management. We have trialed the easy to tolerate medications, but she was unable to tolerate them. We tried rotating medications, but this also led to some dysphoric effects, the patient did not like. We will delay any other changes in medication therapy given the fact that she was unable to tolerate fairly benign medications from a GI standpoint and nausea standpoint. Certainly we can look towards medication management in the future if necessary. 3. I have recommended the patient return to the referring physician, Dr. Felix Thrasher, to discuss surgical options. We will be available to have the patient undergo epidural injections on an as needed basis, but I believe that further interventions may be necessary. We will defer to Dr. Thrasher if he wishes to [facility] [address] [place] [address] PAIN MANAGEMENT CONSULTATION Name: LYNETTE ALCANTARA Room #: REG CLMagen San#: [id number] Admission: 08/20/18 Attend Phys: Yunior Quinteros DO Discharge: Date of : 42 Report #: [id number] move forward with surgical options. 4. We will see the patient back in followup visit on an as needed basis. By: 1541 20 Yunior Quinteros DO /nt
[2018-08-20 09:32] VITALS: BP 116/54
== END | disposition home or self-care (01) ==
LOC: PAIN 08:59
DX: M54.9 Dorsalgia, unspecified (principal); Z88.2 Allergy status to sulfonamides; Z88.8 Allergy status to other drugs, medicaments and biological substances; Z79.899 Other long term (current) drug therapy

== ENCOUNTER → 2019-01-07 | Outpatient (CLI) | payer OTHER ==
[~2019-01-07] VITALS: Ht 149.9 cm; Wt 45.8 kg
[2019-01-07 10:15] VITALS: BP 130/60
--- NOTE | 2019-01-07 10:35 | NUR ---
Pain Clinic Assessment: 1. History of Osteoarthritis: BACK FINGERS History of Rheumatoid Arthritis: Not Applicable 2. Height: 4 ft. 11 in. 149.9 cm. Weight: 101.0 lb. oz. 45.813 kg. Patient's BMI: 20.4 3. Vital Signs: BP: 130/60 Pulse: 75 Resp: 14 Temp: 02 Sat: 100 ECG Mon: 4. Pain Intensity: 8 5. Fall Risk: Dizziness: N Needs help standing or walking: N Fallen in the last 3 months: N Fall risk comments: 6. Patient on Blood Thinner: None 7. History of Hypertension: N 8. Opioid Therapy greater than 6 weeks: N Opiate Contract Signed: 9. Risk Assessment Tool Provided: LOW RISK 09/18 10. Functional Assessment Tool: 11. Recreational Drug Use: Never Drug Type: Tobacco Use: Never Smoker Tobacco Type: Amount or Packs/day: How Many Years: Alcohol Use: No Frequency: Quant:
--- NOTE | 2019-01-14 12:39 | HPC ---
[facility] [place] [address] PAIN MANAGEMENT CONSULTATION Name: LYNETTE ALCANTARA Zoya [facility] #[facility] [id number] Admission: 01/07/19 ������������������ Attend Phys: Yunior Quinteros DO Discharge: ������������������ Date of : 42 Report #: [id number] THIS REPORT FOR: //name// CC: GRETCHEN Thrasher MD DATE OF SERVICE: 01/07/2019 CHIEF COMPLAINT: Back pain, bilateral lower extremity pain with paresthesias, right greater than left. HISTORY OF PRESENT ILLNESS: As you know, the patient is a very pleasant 78-year-old severely scoliotic and kyphotic female with longstanding history of low back pain, bilateral lower extremity pain with paresthesias, right greater than left. She was originally referred to our clinic to trial a spinal cord stimulator. Unfortunately, this did not provide improvement in symptoms and thus, the patient did not progress towards permanent implant. She was last seen in our clinic on 08/20/2018 where she underwent a lumbar epidural injection under fluoroscopic guidance for which the patient received benefit. She returns today requesting to undergo next in the series of epidural injections. The most recent epidural injection per the patient's report gave 70-80% improvement in overall pain. She returns today requesting to undergo next in the series. She denies new injury or trauma that may have led to symptom recurrence. She is placing pain score at 8/10, exacerbated with standing, walking and bending, and improves with medications, lying down, heat and cold compresses and the previous lumbar epidural injection. ALLERGIES: SULFA, BACTRIM, TRIAMTERENE AND HYDROCHLOROTHIAZIDE. CURRENT MEDICATIONS: Cholecalciferol, multivitamin, vitamin B12, lovastatin, duloxetine, bupropion, lisinopril, gabapentin, ranitidine. SOCIAL HISTORY: The patient denies tobacco, alcohol or illicit drug use. She is retired. She is accompanied by her present in room today. IMAGING: No new imaging available. PQRS: The patient has thoracolumbar osteoarthritis, cervical osteoarthritis, bilateral arthritic hands, bilateral arthritic hips and knees. No diagnosis of rheumatoid arthritis. She is placing pain intensity today at 8/10. She is not a fall risk, has not had a fall in the last 3 months. She is on a blood thinner. She is treated for hypertension. She is not on chronic opioids. She has a low opiate addiction potential. She is placing pain impact score at 60/70, near complete interference of daily [place] [address] PAIN MANAGEMENT CONSULTATION Name: LYNETTE ALCANTARA [id number] Admission: 01/07/19 ������������������ Attend Phys: Yunior Quinteros DO Discharge: ������������������ Date of : 42 Report #: [id number] PHYSICAL EXAMINATION: VITAL SIGNS: Blood pressure 130/60, pulse 75, respiratory rate 14 and unlabored. The patient is 100% on room air. Height 4 feet 11 inches tall, weight 101 pounds, BMI calculated 20.4. GENERAL: Well-developed, well-nourished, well-hydrated, severely kyphotic and scoliotic 78-year-old female, appearing her stated age. Pain is rated today at around 8/10. HEENT: Normocephalic, atraumatic. Pupils equal, round, reactive to light. Extraocular muscles are intact. Speech fluent. EXTREMITIES: Show no clubbing, no cyanosis and no edema. MUSCULOSKELETAL: Lower extremity strength is symmetrical 5/5. Muscle bulk and tone is symmetrical comparing left lower extremity to right. There is some weakness noted with hip flexors on the right when compared to left. This appears to be related to pain, giveaway strength. Deep tendon reflexes symmetrical. Ankle clonus negative. Babinski is negative. Seated straight leg raising negative. Supine straight leg raising is equivocal. ASSESSMENT: 1. Chronic lumbar radiculopathy. 2. Chronic low back pain. 3. Idiopathic scoliosis. 4. Idiopathic kyphosis. 5. Chronic intractable pain. PLAN: 1. The patient returns today in followup visit having noted excellent benefit with the previous lumbar epidural injection. She returns today in followup visit requesting to undergo next in the series in hopes of building on the success of the previous intervention. The patient denies any new injury or trauma that may have led to symptom recurrence. She has been advised of the risks and benefits of this procedure. These risks include, but are not necessarily limited to, bleeding, bruising, infection, worsening pain, no relief of pain, also risk of temporary or permanent muscle weakness, temporary or permanent nerve damage, possible paralysis and . The patient states understood and wished to proceed. 2. We will see the patient back in followup visit on an as needed basis for possible next in the series of epidural injections. 3. The patient will return to see Dr. Felix Thrasher, her neurosurgeon to discuss potential surgical options if appropriate. PROCEDURE NOTE DESCRIPTION OF PROCEDURE: Lumbar epidural steroid injection under fluoroscopic guidance. [address] [address] PAIN MANAGEMENT CONSULTATION Name: LYNETTE ALCANTARA Room #: REG THEA Sna#: [id number] Admission: 01/07/19 ������������������ Attend Phys: Yunior Quinteros DO Discharge: ������������������ Date of : 42 Report #: [id number] After obtaining written consent, the patient was taken back to fluoroscopy suite, placed in prone position with pillow under abdomen to decrease lumbar lordosis. Skin overlying lumbosacral area then prepped and draped in aseptic fashion. Lumbar intervertebral spaces were identified by AP fluoroscopy. Skin and subcutaneous tissue overlying target site of injection anesthetized with 3 mL of 1% lidocaine. A 20-gauge 3-1/2 inch Tuohy needle was advanced under fluoroscopic guidance towards the epidural space using a paramedian approach. Epidural space identified using loss of resistance to air technique. After negative aspiration for heme or cerebrospinal fluid, 1 mL of Omnipaque injected. A lumbar epidurogram confirmed using both AP and lateral fluoroscopy. After negative aspiration for heme or cerebrospinal fluid, 5 mL of a solution containing 2 mL 40 mg per mL 80 mg total triamcinolone and 3 mL of lidocaine 1% injected slowly. Needle then retracted approximately half way, flushed with 1 mL of 1% lidocaine and then removed. Sterile bandage placed over injection site. No new motor deficits present in the lower extremities following procedure. The patient tolerated procedure well, carefully escorted to recovery room in stable condition. No apparent complications. After meeting discharge criteria, the patient discharged home. ��������������������������������������������� <ELECTRONICALLY SIGNED> ���������������������������������������� By: Yunior Quinteros DO ��������������������������������������������� 01/14/19 [id number] Yunior Quinteros DO /nt
== END | disposition home or self-care (01) ==
LOC: PAIN 07:06
DX: M54.16 Radiculopathy, lumbar region (principal); G89.29 Other chronic pain; M41.26 Other idiopathic scoliosis, lumbar region; I10 Essential (primary) hypertension; M19.90 Unspecified osteoarthritis, unspecified site; Z88.2 Allergy status to sulfonamides; Z88.8 Allergy status to other drugs, medicaments and biological substances; Z79.899 Other long term (current) drug therapy; Z98.890 Other specified postprocedural states

== ENCOUNTER → 2019-04-07 | Outpatient (CLI) | payer OTHER ==
[~2019-04-07] VITALS: Ht 149.9 cm; Wt 45.0 kg
[2019-04-07 13:52] VITALS: BP 128/54
--- NOTE | 2019-04-07 14:01 | NUR ---
Pain Clinic Assessment: 1. History of Osteoarthritis: BACK FINGERS History of Rheumatoid Arthritis: Not Applicable 2. Height: 4 ft. 11 in. 149.9 cm. Weight: 99.2 lb. oz. 44.997 kg. Patient's BMI: 20.0 3. Vital Signs: BP: 128/54 Pulse: 75 Resp: 16 Temp: 02 Sat: 100 ECG Mon: 4. Pain Intensity: 6-8 5. Fall Risk: Dizziness: N Needs help standing or walking: N Fallen in the last 3 months: N Fall risk comments: 6. Patient on Blood Thinner: None 7. History of Hypertension: N 8. Opioid Therapy greater than 6 weeks: N Opiate Contract Signed: 9. Risk Assessment Tool Provided: LOW RISK 09/18 10. Functional Assessment Tool: 60/70 11. Recreational Drug Use: Never Drug Type: Tobacco Use: Never Smoker Tobacco Type: Amount or Packs/day: How Many Years: Alcohol Use: No Frequency: Quant:
--- NOTE | 2019-04-08 08:18 | HPC ---
[facility] [address] [place] [address] PAIN MANAGEMENT CONSULTATION Name: LYNETTE ALCANTARA Room #: [facility]utter [facility] [id number] Admission: 04/07/19 ������������������ Attend Phys: Yunior Quinteros DO Discharge: ������������������ Date of : 42 Report #: [id number] THIS REPORT FOR: //name// CC: Dominguez Thrasher MD DATE OF SERVICE: 04/07/2019 CHIEF COMPLAINT: Back pain, bilateral lower extremity pain, right greater than left. HISTORY OF PRESENT ILLNESS: As you know, the patient is a very pleasant 78-year-old female with severely scoliotic and kyphotic thoracolumbar spine, with longstanding history of low back pain, bilateral lower extremity pain with paresthesias. The patient was referred to our clinic by her neurosurgeon to trial a spinal cord stimulator. Unfortunately, the spinal cord stimulator provided no improvement in symptoms. We have trialled lumbar epidural injections, which do provide transient improvement in symptoms lasting for up to a month to month and a half. She returns today in followup visit reporting a pain score of around 6-8/10. She is aware that ultimately surgery may be necessary if she wishes to see any improvement in her axial back symptoms, but wishes to trial conservative treatment options again today. She returns requesting a lumbar epidural injection under fluoroscopic guidance to address radicular symptoms. She denies new injury or trauma that may have led to symptom development. ALLERGIES: DARVON, KEFLEX, BACTRIM, and SULFA. CURRENT MEDICATIONS: Cymbalta, ranitidine, Wellbutrin, vitamin B12, Crestor, gabapentin, lisinopril, multivitamin, and Colace. SOCIAL HISTORY: The patient denies tobacco, alcohol, IV, or illicit drug use. She is retired, retired years ago, accompanied by her who is present in room today. IMAGING: No new imaging available. PQRS: The patient has known thoracolumbar osteoarthritis, cervical osteoarthritis, bilateral hand osteoarthritis, bilateral hip and knee osteoarthritis. No rheumatoid arthritis. She places pain intensity today 6-8/10. She is not at fall risk, has not had a fall in the last 3 months. Not on blood thinners, not treated for hypertension. She is not on chronic opioids, has a low opiate addiction potential. She is placing pain impact score at 60/70, severe interference, near complete interference of daily activities secondary to pain. [address] [address] PAIN MANAGEMENT CONSULTATION Name: LYNETTE ALCANTARA Room #: REG CLI [facility]#: [id number] Admission: 04/07/19 ������������������ Attend Phys: Yunior Quinteros DO Discharge: ������������������ Date of : 42 Report #: [id number] PHYSICAL EXAMINATION: VITAL SIGNS: Blood pressure 128/54, pulse 75, respiratory rate 16 and unlabored. The patient is 100% on room air. Height 4 feet 11 inches tall, weighs 99.2 pounds, BMI calculated 20. GENERAL: Well-developed, well-nourished, well-hydrated, severely kyphotic and scoliotic 78-year-old female appearing stated age, pain is rated today at 6-8/10. HEENT: Normocephalic, atraumatic. Pupils equal, round, reactive to light. EXTREMITIES: Show no clubbing, no cyanosis, and no edema. MUSCULOSKELETAL: The patient has lower extremity strength equal and symmetrical 5/5. Muscle bulk and tone is equal and symmetrical in comparing left lower extremity to right except for the weakness over the hip flexors on the right when compared to left. Deep tendon reflexes are symmetrical. Ankle clonus negative. Babinski is negative. Seated straight leg raising negative. Supine straight leg raising is equivocal. There is significant scoliotic and kyphotic curvature to the thoracolumbar area. Palpatory tenderness over the area, no spinous process tenderness. ASSESSMENT: 1. Chronic lumbar radiculopathy. 2. Idiopathic scoliosis. 3. Idiopathic kyphosis. 4. Opioid intolerance. 5. Chronic intractable pain. PLAN: 1. The patient returns today in followup visit requesting to undergo next in the series of lumbar epidural injections. She reports improvement in symptoms with the epidural injections, hopeful to see similar improvements today. We have discussed with the patient the risks and benefits of the procedure, especially given her severely kyphotic and scoliotic curvature. These risks include but are not necessarily limited to bleeding, bruising, infection, worsening pain, no relief of pain, also risk of temporary or permanent muscle weakness, temporary or permanent nerve damage, possible paralysis, post-dural puncture headache and . The patient states understood and wished to proceed. 2. The patient and I had a very long discussion today about the significant curvature the patient has in thoracolumbar area. I am concerned that interventional treatments will ultimately lose efficacy and thus, the patient will have to look toward surgical options. The patient at this point is 78 years old, which makes her a less than optimal candidate, but at present, she is also physically healthy. I believe ultimately surgical decompression and correction of the curvature is the only single way that the patient can see significant improvement in symptoms, though this would be an extensive procedure and two surgeons have already advised the patient that they would not be willing [address] [address] PAIN MANAGEMENT CONSULTATION Name: LYNETTE ALCANTARA Room #: REG [facility]#: [id number] Admission: 04/07/19 ������������������ Attend Phys: Yunior Quintreos DO Discharge: ������������������ Date of : 42 Report #: [id number] to provide that treatment. She could seek evaluation from neurosurgeons who are more adept at these severe kyphosis and scoliotic curvature cases, she will have to be referred for that option. We also discussed medication management today, but the patient has had so many side effects to previous medications that she is not an optimal candidate for this type of treatment. We tried the most conservative options and she could not tolerate symptoms. We tried more aggressive options and she could not tolerate the symptoms. We are limited in the medications available and I am not confident that she will find any medication that will provide good improvement given the significant changes in the thoracolumbar spine. 3. We have trialled a spinal cord stimulator in this patient and unfortunately, she has had no improvement. This essentially has completed the available treatment options we have for this patient and there are not many options available left to us for pain control. We discussed this with the patient today. There is a potential new medication that may be available in the near future coming from [employer] that is a monoclonal antibody medication to address chronic pain, though there is no indication by the informatics physician when this might be available. It could be years. Once it does become available, she may be a candidate, but again this is not available at this point and we do not have any date in the foreseeable future that it will be approved. 4. We will see the patient back in followup visit, assuming the epidural injection provided today is efficacious. Otherwise, she will need to follow up with her PCP for possible referral to surgeons who specialize in scoliotic and kyphotic curvatures in aged adults. PROCEDURE NOTE DESCRIPTION OF PROCEDURE: L3-L4 Lumbar epidural steroid injection under fluoroscopic guidance. After obtaining written consent, the patient was taken back to fluoroscopy suite, placed in prone position with pillow under abdomen to decrease lumbar lordosis. Skin overlying lumbosacral area then prepped and draped in aseptic fashion. The L3-L4 vertebral interspace was identified by AP fluoroscopy. Skin and subcutaneous tissue overlying target site of injection anesthetized with 3 mL of 1% lidocaine. A 20-gauge 3-1/2 inch Tuohy needle was advanced under fluoroscopic guidance towards the epidural space using a parasagittal approach. Epidural space identified using loss of resistance to air technique. After negative aspiration for heme or cerebrospinal fluid, 1 mL of Omnipaque injected. A lumbar epidurogram was confirmed using both AP and lateral fluoroscopy. After negative aspiration for heme or cerebrospinal fluid, 5 mL of a solution containing 2 mL 40 mg per mL, 80 mg total triamcinolone, 3 mL lidocaine 1% injected slowly. Needle then retracted approximately half way, flushed with 1 mL of 1% lidocaine and then removed. Sterile bandage placed over injection site. [address] [address] PAIN MANAGEMENT CONSULTATION Name: LYNETTE ALCANTARA Room #: REG THEA San#: [id number] Admission: 04/07/19 ������������������ Attend Phys: Yunior Quinteros DO Discharge: ������������������ Date of : 42 Report #: [id number] deficits present in lower extremity following the procedure. The patient tolerated procedure well, carefully escorted to recovery room in stable condition. No apparent complications. After meeting discharge criteria, the patient discharged home. ��������������������������������������������� <ELECTRONICALLY SIGNED> ���������������������������������������� By: Yunior Quinteros DO ��������������������������������������������� 04/08/19 0818 [id number] Yunior Quinteros DO /nt
== END | disposition home or self-care (01) ==
LOC: PAIN 07:01
DX: M54.16 Radiculopathy, lumbar region (principal); G89.29 Other chronic pain; M19.90 Unspecified osteoarthritis, unspecified site; M40.295 Other kyphosis, thoracolumbar region; Z88.2 Allergy status to sulfonamides; Z88.8 Allergy status to other drugs, medicaments and biological substances; Z79.899 Other long term (current) drug therapy; Z98.890 Other specified postprocedural states

== ENCOUNTER → 2019-06-30 | Outpatient (CLI) | payer OTHER ==
[~2019-06-30] VITALS: Ht 149.9 cm; Wt 45.5 kg
[2019-06-30 09:31] VITALS: BP 123/52
--- NOTE | 2019-06-30 09:42 | NUR ---
Pain Clinic Assessment: 1. History of Osteoarthritis: BACK FINGERS History of Rheumatoid Arthritis: Not Applicable 2. Height: 4 ft. 11 in. 149.9 cm. Weight: 100.2 lb. oz. 45.450 kg. Patient's BMI: 20.2 3. Vital Signs: BP: 123/52 Pulse: 71 Resp: 14 Temp: 02 Sat: 100 ECG Mon: 4. Pain Intensity: 7 5. Fall Risk: Dizziness: N Needs help standing or walking: N Fallen in the last 3 months: N Fall risk comments: 6. Patient on Blood Thinner: None 7. History of Hypertension: N 8. Opioid Therapy greater than 6 weeks: N Opiate Contract Signed: 9. Risk Assessment Tool Provided: LOW RISK 09/18 10. Functional Assessment Tool: 11. Recreational Drug Use: Never Drug Type: Tobacco Use: Never Smoker Tobacco Type: Amount or Packs/day: How Many Years: Alcohol Use: No Frequency: Quant:
--- NOTE | 2019-07-07 08:01 | HPC ---
[facility] [place] [address] PAIN MANAGEMENT CONSULTATION Name: LYNETTE ALCANTARA [facility] [id number] Admission: 06/30/19 Attend Phys: Yunior Quinteros DO Discharge: Date of : 42 Report #: [id number] THIS REPORT FOR: //name// CC: GRETCHEN THRASHER MD DATE OF SERVICE: 06/30/2019 REFERRING PHYSICIAN: Felix Thrasher MD CHIEF COMPLAINT: Low back pain, bilateral lower extremity pain, right greater than left. HISTORY OF PRESENT ILLNESS: As you know, the patient is a very pleasant 76-year-old female returning in followup visit to undergo next in the series of epidural injections. As you are aware, the patient suffers from severe scoliotic and kyphotic thoracolumbar spine, leading to lumbar radiculopathy. She did very well with previous epidural injection providing near 90% improvement in overall pain lasting for 3 months. Unfortunately, she has had a slow and progressive return of symptoms. She is now placing pain score at 7/10. She returns to undergo next in the series of injections in hopes of improving pain. She denies new injury or trauma. ALLERGIES: DARVON, KEFLEX, BACTRIM, SULFA. CURRENT MEDICATIONS: Cymbalta, ranitidine, Wellbutrin, vitamin B12, Crestor, gabapentin, lisinopril, multivitamin, and Colace. SOCIAL HISTORY: The patient denies tobacco, alcohol, IV or illicit drug use. She is retired, retired years ago, accompanied by her present in room today. IMAGING: No new imaging available. PQRS: The patient has known thoracolumbar osteoarthritis, cervical osteoarthritis, bilateral hand and bilateral hip as well as bilateral knee osteoarthritis. No rheumatoid arthritis. She is placing pain intensity at 7/10. She is not a fall risk, has not had a fall in last 3 months. She is not on blood thinners, but is treated for hypertension. She is not on any chronic opioids, has a low opioid addiction potential based on our assessment tool. Pain impact score of 60/70 near complete interference of daily activities secondary to pain. PHYSICAL EXAMINATION: [facility] [address] [place] [address] PAIN MANAGEMENT CONSULTATION Name: LYNETTE ALCANTARA Room #: REG [facility]#: [id number] Admission: 06/30/19 Attend Phys: Yunior Quinteros DO Discharge: Date of : 42 Report #: [id number] VITAL SIGNS: Blood pressure 123/52, pulse is 71, respiratory rate 14 and unlabored. The patient is 100% on room air. Height 4 feet 11 inches tall, weight 100.2 pounds, BMI calculated 20.2. GENERAL: Well-developed, well-nourished, well-hydrated, scoliotic and kyphotic 78-year-old female appearing stated age. She is in no acute distress, awake, alert and oriented x 3. Current pain score 7/10. HEENT: Normocephalic, atraumatic. Pupils equal, round, reactive to light. EXTREMITIES: Show no clubbing, no cyanosis, and no edema. MUSCULOSKELETAL: The patient's lower extremity strength is symmetrical 5/5. Muscle bulk and tone remains symmetrical when comparing left lower extremity to right. There is some weakness with hip flexors on the right when compared to left, but this has been noted on previous evaluations. Deep tendon reflexes are symmetrical. Seated straight leg raising negative. Supine straight leg raising is equivocal. ASSESSMENT: 1. Chronic lumbar radiculopathy. 2. Idiopathic scoliosis. 3. Idiopathic kyphosis. 4. Opioid intolerance. 5. Chronic intractable pain. PLAN: 1. The patient returns today in followup visit having noted 90% improvement in overall pain lasting for nearly 3 months with the previous injection. She is very pleased with response to this injection, returning today in followup visit with recurrence of symptoms without inciting injury or trauma requesting to undergo next in the series. She has been advised the risks and benefits of the procedure. These risks include but are not necessarily limited to bleeding, bruising, infection, worsening pain, no relief of pain, also risk of temporary or permanent muscle weakness, temporary or permanent nerve damage, possible paralysis, post-dural puncture headache and . The patient states understood and wished to proceed. 2. No medication changes made at today's visit. The patient will continue current medical therapy as previously prescribed. 3. We will see the patient back in followup visit on an as needed basis for possible next in the series of lumbar epidural injections. PROCEDURE NOTE DESCRIPTION OF PROCEDURE: L3-L4 interlaminar epidural steroid injection under fluoroscopic guidance. After obtaining written consent, the patient was taken back to fluoroscopy suite, placed in prone position with pillow under abdomen to decrease lumbar lordosis. Skin overlying lumbosacral area then prepped and draped in aseptic [facility] [address] [place] [address] PAIN MANAGEMENT CONSULTATION Name: LYNETTE ALCANTARA Room #: REG CL[facility]#: [id number] Admission: 06/30/19 Attend Phys: Yunior Quinteros DO Discharge: Date of : 42 Report #: [id number] fashion. The L3-L4 vertebral interspace identified by AP fluoroscopy. Skin and subcutaneous tissue overlying target site of injection anesthetized with 3 mL of 1% lidocaine. A 20-gauge 3-1/2 inch Tuohy needle advanced under fluoroscopic guidance towards the epidural space using a parasagittal approach. Epidural space identified using loss of resistance to air technique. After negative aspiration for heme or cerebrospinal fluid, 1 mL of Omnipaque injected. Lumbar epidurogram confirmed using both AP and lateral fluoroscopy. After negative aspiration for heme or cerebrospinal fluid, 5 mL of a solution containing 2 mL 40 mg per mL, 80 mg total triamcinolone along with 3 mL lidocaine 1% injected slowly. Needle then retracted approximately half way, flushed with 1 mL of 1% lidocaine and then removed. Sterile bandage placed over injection site. There were no new motor deficits present in lower extremity following procedure. The patient tolerated the procedure well, carefully escorted to recovery room in stable condition. No apparent complications. After meeting discharge criteria, the patient discharged home. <ELECTRONICALLY SIGNED> By: Yunior Quinteros DO 07/07/19 0801 [id number] Yunior Quinteros DO /nt
== END | disposition home or self-care (01) ==
LOC: PAIN 06:52
DX: M54.5 Low back pain (principal); M54.16 Radiculopathy, lumbar region; G89.29 Other chronic pain; M41.20 Other idiopathic scoliosis, site unspecified; I10 Essential (primary) hypertension; M19.90 Unspecified osteoarthritis, unspecified site; T40.2X5A Adverse effect of other opioids, initial encounter; Z88.2 Allergy status to sulfonamides; Z88.8 Allergy status to other drugs, medicaments and biological substances; Z79.899 Other long term (current) drug therapy; Y92.89 Other specified places as the place of occurrence of the external cause

== ENCOUNTER → 2019-09-01 | Outpatient (CLI) | payer OTHER ==
[~2019-09-01] VITALS: Ht 149.9 cm; Wt 46.1 kg
[2019-09-01 08:56] VITALS: BP 122/64
--- NOTE | 2019-09-01 08:58 | NUR ---
Pain Clinic Assessment: 1. History of Osteoarthritis: BACK FINGERS History of Rheumatoid Arthritis: Not Applicable 2. Height: 4 ft. 11 in. 149.9 cm. Weight: 101.6 lb. oz. 46.085 kg. Patient's BMI: 20.5 3. Vital Signs: BP: 122/64 Pulse: 69 Resp: 18 Temp: 02 Sat: 100 ECG Mon: 4. Pain Intensity: 5 5. Fall Risk: Dizziness: N Needs help standing or walking: N Fallen in the last 3 months: N Fall risk comments: 6. Patient on Blood Thinner: None 7. History of Hypertension: N 8. Opioid Therapy greater than 6 weeks: N Opiate Contract Signed: 9. Risk Assessment Tool Provided: LOW RISK 09/18 10. Functional Assessment Tool: 11. Recreational Drug Use: Never Drug Type: Tobacco Use: Never Smoker Tobacco Type: Amount or Packs/day: How Many Years: Alcohol Use: No Frequency: Quant:
--- NOTE | 2019-09-02 12:06 | HPC ---
[facility] [place] [address] PAIN MANAGEMENT CONSULTATION Name: LYNETTE ALCANTARA Zoya [facility] [id number] Admission: 09/01/19 Attend Phys: Yunior Quinteros DO Discharge: Date of : 42 Report #: [id number] THIS REPORT FOR: //name// CC: Dominguez Thrasher MD DATE OF SERVICE: 09/01/2019 REFERRING PHYSICIAN: Dr. Felix Thrasher. PRIMARY CARE PHYSICIAN: Dr. Dominguez Mo. CHIEF COMPLAINT: Low back pain, bilateral lower extremity pain. HISTORY OF PRESENT ILLNESS: As you know, the patient is a very pleasant, severely kyphotic and scoliotic female who returns today in followup visit to undergo next in the series of lumbar epidural injections under fluoroscopic guidance. We had provided a lumbar epidural injection at our last visit, which the patient reports 90% improvement in overall pain lasting for about 5-7 weeks with a slow and progressive return of symptoms, now reporting a remaining 30% improvement overall. She is placing pain score a 5/10. States the pain begins in low back, bilateral buttock and radiates down, mostly to the right side. She describes the pain as sharp, stabbing, aching, numbness and tingling. Alleviated by medications, lying down and epidural injections, exacerbated with standing and walking. She returns today to undergo next in the series of lumbar epidural injections. ALLERGIES: SULFA, BACTRIM. CURRENT MEDICATIONS: See chart. SOCIAL HISTORY: The patient denies tobacco, alcohol, IV or illicit drug use. She is retired, accompanied by her present in room today. IMAGING: There is no new imaging available. PQRS: The patient has known thoracolumbar osteoarthritis, cervical osteoarthritis, bilateral hand and bilateral hip osteoarthritis as well as bilateral knees. No rheumatoid arthritis. She indicates she is not a fall risk, has not had a fall in last 3 months. She is not on blood thinners. Reports she is not treated for hypertension. She is not on chronic opioids, has a low opioid addiction potential. Pain impact score is 60/70 indicating near complete interference of daily activities secondary to pain. [facility] [address] [place] [address] PAIN MANAGEMENT CONSULTATION Name: LYNETTE ALCANTARA Room #: REG [facility]#: [id number] Admission: 09/01/19 Attend Phys: Yunior Quinteros DO Discharge: Date of : 42 Report #: [id number] PHYSICAL EXAMINATION: VITAL SIGNS: Blood pressure 122/64, pulse 69, respiratory rate 18 and unlabored. The patient is 100% on room air. Height 4 feet 11 inches tall, weight 101.6 pounds, BMI calculated 20.5. GENERAL: Well-developed, well-nourished, well-hydrated 76-year-old female appearing her stated age, pain is rated today 5/10. HEENT: Normocephalic, atraumatic. Pupils equal, round, reactive to light. Speech fluent. The patient deemed an excellent historian. EXTREMITIES: Show no clubbing, no cyanosis, no edema. MUSCULOSKELETAL: The patient has significant thoracolumbar scoliosis and kyphosis. She has palpatory tenderness over the paraspinal musculature of the mid thoracic, lower thoracic and entire lumbar spine. There are multiple tender points, no specific trigger points. Seated straight leg raising negative. Supine straight leg raising is equivocal. Lumbar provocation testing is met with increased pain. ASSESSMENT: 1. Lumbar radiculopathy. 2. Idiopathic scoliosis. 3. Idiopathic kyphosis. 4. Opioid intolerance. 5. Chronic intractable pain. PLAN: 1. The patient returns today in followup visit requesting to undergo next in the series of lumbar epidural injections. She has reported good efficacy with previous epidural injection and hopeful to see similar improvement today. She has been advised risks and benefits of the procedure. These risks include but are not necessarily limited to bleeding, bruising, infection, worsening pain, no relief of pain, also risk of temporary or permanent muscle weakness, temporary or permanent nerve damage, possible paralysis, post-dural puncture headache and . The patient states understood and wished to proceed. 2. No medication changes made at today's visit. The patient will continue current medical therapy as previously prescribed. 3. We will see the patient back in followup visit on an as needed basis for possible next in the series of lumbar epidural injections. PROCEDURE NOTE DESCRIPTION OF PROCEDURE: L3-L4 intralaminar epidural steroid injection under fluoroscopic guidance. After obtaining written consent, the patient was taken back to fluoroscopy suite, placed in prone position with pillow under her abdomen to decrease lumbar lordosis. Skin overlying lumbosacral area then prepped and draped in aseptic fashion. The L3-L4 interspace was identified by AP fluoroscopy. [facility] and [address] [address] PAIN MANAGEMENT CONSULTATION Name: LYNETTE ALCANTARA Room #: MIGUEL San#: [id number] Admission: 09/01/19 Attend Phys: Yunior Quinteros DO Discharge: Date of : 42 Report #: [id number] subcutaneous tissue overlying target site of injection anesthetized with 3 mL of 1% lidocaine. A 20-gauge 3-1/2 inch Tuohy needle advanced under fluoroscopic guidance towards the epidural space using a parasagittal approach. Epidural space identified using loss of resistance to air technique. After negative aspiration for heme or cerebrospinal fluid, 1 mL of Omnipaque injected. Lumbar epidurogram confirmed using both AP and lateral fluoroscopy. After negative aspiration for heme or cerebrospinal fluid, 5 mL of a solution containing 2 mL 40 mg per mL, 80 mg total triamcinolone along with 3 mL of lidocaine 1% injected slowly. Needle retracted intermediate, flushed with 1 mL of 1% lidocaine and then removed. Sterile bandage placed over injection site. There were no new motor deficits present in lower extremities following procedure. The patient tolerated the procedure well, carefully escorted to recovery room in stable condition. No apparent complications. After meeting discharge criteria, the patient was discharged to home. <ELECTRONICALLY SIGNED> By: Yunior Quinteros DO 09/02/19 1206 1236 21 Yunior Quinteros DO /nt
== END | disposition home or self-care (01) ==
LOC: PAIN 08:31
DX: M54.16 Radiculopathy, lumbar region (principal); M41.26 Other idiopathic scoliosis, lumbar region; G89.29 Other chronic pain; M19.90 Unspecified osteoarthritis, unspecified site; Z98.890 Other specified postprocedural states; Z79.899 Other long term (current) drug therapy; Z88.2 Allergy status to sulfonamides; Z88.8 Allergy status to other drugs, medicaments and biological substances

== ENCOUNTER → 2020-01-20 | Outpatient (CLI) | payer OTHER ==
[~2020-01-20] VITALS: Ht 149.9 cm; Wt 45.8 kg
[~2020-01-20] MED LIST changes: +ACID CONTROLLER20 MG PO
--- NOTE | ~2020-01-20 | HPC ---
[address] [address] PAIN MANAGEMENT CONSULTATION Name: LYNETTE ALCANTARA Room #: REG [facility].#: [id number] Admission: 01/20/20 Attend Phys: Yunior Quinteros DO Discharge: Date of : 42 Report #: [id number] THIS REPORT FOR: cc: Dominguez Mo MD, Herbert M. MD Johnson, James E. DO ~ CC: Dominguez Thrasher MD DATE OF SERVICE: 01/20/2020 CHIEF COMPLAINT: Low back pain, bilateral lower extremity pain with paresthesias. HISTORY OF PRESENT ILLNESS: As you know, the patient is a very pleasant 79-year-old severely scoliotic and kyphotic individual who returns today in followup visit to undergo next in the series of epidural injections under fluoroscopic guidance. The patient is reporting pain today at around 10/10. She describes the pain as sharp, aching and cramping, and crippling in its nature. The epidural injection provided on 09/01/2019 gave 90% improvement in overall pain lasting for nearly 3 months. Unfortunately, the symptoms have begun to return. She had plans to return to our clinic in November, but due to COVID restrictions she chose to delay her epidural injection until today. She returns today for the next in the series of epidural injections. She denies injury or trauma that has led to symptom reoccurrence. ALLERGIES: SULFA AND BACTRIM. CURRENT MEDICATIONS: Gabapentin, lisinopril, duloxetine, rosuvastatin, vitamin B12, multivitamin, cholecalciferol, and famotidine. SOCIAL HISTORY: The patient denies tobacco, alcohol, IV or illicit drug use. She is retired, accompanied by her who is present in the clinic today. IMAGING: No new imaging available. PQRS: The patient has known thoracolumbar osteoarthritis, cervical osteoarthritis, bilateral hand osteoarthritis, bilateral hip osteoarthritis and bilateral knee osteoarthritis. No diagnosis of rheumatoid arthritis. She is placing pain intensity 10/10. She is not a fall risk, has not had a fall in last 3 months. She is not on blood thinners, but is treated for hypertension. She is not on chronic opioids, but does have a low opiate addiction potential based on our assessment tool. Pain impact score 60/70, severe interference of daily activities secondary to pain. [address] [address] PAIN MANAGEMENT CONSULTATION Name: LYNETTE ALCANTARA Room #: REG [facility]#: [id number] Admission: 01/20/20 Attend Phys: Yunior Quinteros DO Discharge: Date of : 42 Report #: [id number] PHYSICAL EXAMINATION: VITAL SIGNS: Blood pressure 132/49, pulse 68, respiratory rate 16 and unlabored. The patient is 99% on room air. Height 4 feet 11 inches tall, weight 101 pounds, BMI calculated 20.4. GENERAL: Well-developed, well-nourished, well-hydrated kyphotic and scoliotic 79-year-old female appearing stated age, pain is rated today 10/10. HEENT: Normocephalic, atraumatic. There is no anisocoria, no pupil dilation or constriction. The pupils are equal, round, and reactive. EXTREMITIES: Show no clubbing, no cyanosis, no edema. MUSCULOSKELETAL: The patient has a significant thoracolumbar scoliotic and kyphotic curvature. She remains with palpatory tenderness over the thoracolumbar spine, mainly on the left. Multiple tender points. No specific trigger points were identified. The muscle bulk and tone in the lower extremities appears symmetrical, but deconditioned. Seated straight leg raising negative. Supine straight leg raising remains equivocal. Lumbar provocation testing is met with severe restriction of motion and increasing pain. ASSESSMENT: 1. Chronic lumbar radiculopathy. 2. Idiopathic scoliosis. 3. Idiopathic kyphosis. 4. Lumbosacral spondylosis with radiculopathy. 5. Chronic intractable pain. PLAN: 1. The patient returns today in followup visit having noted 90% improvement in overall pain with the previous epidural injection provided in August. She returns today in followup visit to undergo next in the series of epidural injections. The patient has been advised risks and benefits of a lumbar epidural injection. These risks include but are not necessarily limited to bleeding, bruising, infection, worsening pain, no relief of pain, also risk of temporary or permanent muscle weakness, temporary or permanent nerve damage, possible paralysis and . The patient states she understood and wished to proceed. The patient was advised of the risk she has in regards to steroid exposure and COVID-19 virus. It has been shown that steroids do reduce the immune response and thus may make her more susceptible to contraction of the COVID-19 virus. There is also a chance that if the patient does have symptoms of COVID-19, she may see exacerbation of those symptoms based on the SON[facility] reports recently released. The patient states she understands her risk in regards to COVID-19 and wishes to proceed. 2. No medication changes made at today's visit. The patient will continue current medical therapy as previously prescribed. 3. We will see the patient back in followup visit on an as needed basis for possible next in the series of epidural injections. We are hopeful the patient will see similar improvement in symptoms for a prolonged period of time. [address] [place] [address] PAIN MANAGEMENT CONSULTATION Name: LYNETTE ALCANTARA Room #: REG [facility]#: [id number] Admission: 01/20/20 Attend Phys: Yunior Quinteros DO Discharge: Date of : 42 Report #: [id number] PROCEDURE NOTE: L3-L4 interlaminar epidural steroid injection under fluoroscopic guidance. After obtaining written consent, the patient was taken back to fluoroscopy suite, placed in prone position with pillow under abdomen to decrease lumbar lordosis. Skin overlying lumbosacral area then prepped and draped in aseptic fashion. The L3-L4 vertebral interspace were identified by AP fluoroscopy. Skin and subcutaneous tissue overlying target site injection anesthetized with 3 mL of 1% lidocaine. A 20-gauge 3-1/2 inch Tuohy needle advanced under fluoroscopic guidance towards the epidural space using a parasagittal approach. Epidural space identified using loss of resistance to air technique. After negative aspiration for heme or cerebrospinal fluid, 1 mL of Omnipaque injected. Lumbar epidurogram confirmed using both AP and lateral fluoroscopy. After negative aspiration for heme or cerebrospinal fluid, 5 mL of a solution containing 2 mL 40 mg per mL, 80 mg total triamcinolone along with 3 mL of lidocaine 1% injected slowly. Needle then retracted approximately half way, flushed with 1 mL of 1% lidocaine and then removed. Sterile bandage placed over injection site. No new motor deficits present in the lower extremity following procedure. The patient tolerated procedure well, carefully escorted to recovery room in stable condition. No apparent complications. After meeting discharge criteria, the patient discharged home. By: [id number] Yunior Quinteros DO /nt
[2020-01-20 12:27] VITALS: BP 132/49
--- NOTE | 2020-01-20 12:34 | NUR ---
Pain Clinic Assessment: 1. History of Osteoarthritis: BACK FINGERS History of Rheumatoid Arthritis: Not Applicable 2. Height: 4 ft. 11 in. 149.9 cm. Weight: 101.0 lb. oz. 45.813 kg. Patient's BMI: 20.4 3. Vital Signs: BP: 132/49 Pulse: 68 Resp: 16 Temp: 02 Sat: 99 ECG Mon: 4. Pain Intensity: 10 5. Fall Risk: Dizziness: N Needs help standing or walking: N Fallen in the last 3 months: N Fall risk comments: 6. Patient on Blood Thinner: None 7. History of Hypertension: N 8. Opioid Therapy greater than 6 weeks: N Opiate Contract Signed: 9. Risk Assessment Tool Provided: LOW RISK 1 10. Functional Assessment Tool: 60/70 11. Recreational Drug Use: Never Drug Type: Tobacco Use: Never Smoker Tobacco Type: Amount or Packs/day: How Many Years: Alcohol Use: No Frequency: Quant:
== END | disposition home or self-care (01) ==
LOC: PAIN 12-01 12:23
DX: M47.27 Other spondylosis with radiculopathy, lumbosacral region (principal); G89.29 Other chronic pain; M41.20 Other idiopathic scoliosis, site unspecified; I10 Essential (primary) hypertension; M19.90 Unspecified osteoarthritis, unspecified site; Z98.890 Other specified postprocedural states; Z79.899 Other long term (current) drug therapy